=== PATIENT | female | born 2000 ===

== ENCOUNTER 2022-01-21 12:12 | Day surgery (SDC) | payer BC ==
[2022-01-21] MEDS ORDERED: LACTATED RINGERS 1,000 ML IV SCH (12:36)
[2022-01-21 12:39] VITALS: TEMP 97.4
[2022-01-21] MEDS ORDERED: fentaNYL (PF) 50 MCG/ML 2 ML AMP ONE (13:20)
[2022-01-21] MEDS ORDERED: MIDAZOLAM 2 MG/2 ML VIAL ONE (13:20)
--- NOTE | 2022-01-21 13:50 | P.PCN ---
Date of Procedure: 01/21/22 Procedure(s) Performed: Preoperative diagnosis: pseudotumors cerebri Post operative diagnoses: pseudotumors cerebri Procedure= lumbar puncture Anesthesia =motor sedation with Versed 1 mg and fentanyl 50 g,and local infiltration with lidocaine 1% 3 mL. Condition: stable Complication: none. Description of the procedure procedure risk and benefits discussed with the patient , consent signed. Patient and the procedure area placed in lateral position ( right side down ), back prepped with chlorhexidine 3 times been local infiltration of the skin and subcutaneous tissue with lidocaine 1% 3 mL for skin and subcu interstitial frustrations at L4 5 levels then 22-gauge Quincke-type needle advanced slowly at L4- 5 interlaminar space there was positive cerebrospinal fluid which was clear, no heme, no paresthesia ,total of 8.5 ML of clear cerebrospinal fluid collected in 4 different tubes 2-2-1/2 mL in each, then the needle removed and a Band-Aid applied and patient tolerated the procedure well without any complications. opening pressure= 32 centimeter of water. Closing pressure after removal of a half mL of clear cerebrospinal fluid 22 centimeter of water
[2022-01-21 13:53] VITALS: RESP 16
[2022-01-21] MEDS ORDERED: IV FLUID CONTINUATION 1,000 ML IV ONE (13:54)
[2022-01-21] MEDS ORDERED: KETOROLAC 15 MG/ML 1 ML VIAL IVP ONE (13:57)
[2022-01-21] MEDS ORDERED: KETOROLAC 15 MG/ML 1 ML VIAL ONE (13:59)
[2022-01-21 14:16] VITALS: BP 119/80; PULSE 68
[2022-01-21 17:35] LABS: Total Protein,CSF 26 mg/dL (12-60)
[2022-01-21 18:02] LABS: Appearance,CSF Clear; CSF Tube Number 4; CSF Tube Volume 2.5; Nucleated Cells, CSF 0 u/L (0-5); Red Blood Cell,CSF 1 u/L (0-10)
== END 2022-01-21 14:21 | disposition home or self-care (01) ==
LOC: ORPAIN 12:12
PROVIDERS: ATTEND Specialist
DX: G93.2 Benign intracranial hypertension (principal)
CPT/HCPCS: 81025; 84157; 89050; 62270; J2250; J3010; J1885; 88108; 99152; 99153